=== PATIENT | female | born 1945 | race African-American/Black ===

== ENCOUNTER 2018-10-09 16:23 | Emergency (ER) | payer OTHER ==
[~2018-10-09] VITALS: Ht 162.6 cm; Wt 67.1 kg
== END 2018-10-09 18:13 | disposition home or self-care (01) ==
LOC: ER 16:23
DX: M54.5 Low back pain (principal)

== ENCOUNTER 2018-11-20 08:28 | Outpatient (CLI) | payer OTHER | END 2018-11-20 08:31 | disposition home or self-care (01) | LOC: MAMO-SONO 08:28 | DX: Z12.31 Encounter for screening mammogram for malignant neoplasm of breast (principal); Z80.3 Family history of malignant neoplasm of breast ==

== ENCOUNTER 2019-05-28 09:15 | Emergency (ER) | payer OTHER ==
[~2019-05-28] VITALS: Ht 162.6 cm; Wt 59.0 kg
[2019-05-28] MEDS ORDERED: COREG CR40 MG PO (09:28)
[2019-05-28] MEDS ORDERED: AMLODIPINE-OLM1 EAC2 PO (09:28)
[2019-05-28] MEDS ORDERED: ULTRACET PO (09:55)
== END 2019-05-28 10:47 | disposition home or self-care (01) ==
LOC: ER 09:15
DX: M54.5 Low back pain (principal)

== ENCOUNTER 2019-08-19 11:59 | Emergency (ER) | payer OTHER ==
[~2019-08-19] VITALS: Ht 162.6 cm; Wt 63.5 kg
[~2019-08-19 11:59] MED LIST: AMLODIPINE-OLM1 EAC2 PO; COREG CR40 MG PO; ULTRACET PO
== END 2019-08-19 16:28 | disposition home or self-care (01) ==
LOC: ER 11:59
DX: L97.429 Non-pressure chronic ulcer of left heel and midfoot with unspecified severity (principal); Z85.6 Personal history of leukemia